=== PATIENT | male | born 1980 | race Caucasian/White ===

== ENCOUNTER 2020-01-19 20:10 | Emergency (ER) | payer MEDICAID ==
[~2020-01-19] VITALS: Ht 182.9 cm; Wt 90.9 kg
[2020-01-19] MEDS ORDERED: TETanus/Pertussis (Acell)/Diphther VAC/PF (Tdap-Adult) 0.5ml syringe IMVAC ONE (20:25)
[2020-01-19] MEDS ORDERED: LIDOcaine 1% W/epiNEPHrine 1:200,000 10ml vial IJ ONE (20:25)
--- NOTE | 2020-01-19 20:30 | NUR ---
clonidine, lamictal, prozac, latuda
[2020-01-19] MEDS ORDERED: LORA2TAB96 PO (21:02)
[2020-01-19] MEDS ORDERED: LIDOcaine 4% (40 mg/ml) topical solution 50ml TP ONE (21:10)
[2020-01-19] MEDS ORDERED: CLON-529 PO (21:13)
[2020-01-19] MEDS ORDERED: LORA-660 PO (21:15)
[2020-01-19] MEDS ORDERED: FLUO20CA39 PO (21:15)
[2020-01-19] MEDS ORDERED: LURA20TA PO (21:15)
[2020-01-19] MEDS ORDERED: ZOLP5TAB8 PO (21:15)
[2020-01-19] MEDS ORDERED: DIAZ5TAB4 PO (21:15)
[2020-01-19] MEDS ORDERED: LAMO100T65 PO (21:16)
[2020-01-19] MEDS ORDERED: CEPH-572 PO (22:06)
[2020-01-19] MEDS ORDERED: HYDR-3965 PO (22:06)
[2020-01-19 22:26] VITALS: BP 146/81
== END 2020-01-19 22:32 | disposition home or self-care (01) ==
LOC: ER 20:11
DX: S40.212A Abrasion of left shoulder, initial encounter (principal); S50.312A Abrasion of left elbow, initial encounter; M79.602 Pain in left arm; F17.200 Nicotine dependence, unspecified, uncomplicated; Z88.2 Allergy status to sulfonamides; Z79.2 Long term (current) use of antibiotics; Z79.899 Other long term (current) drug therapy; W18.39XA Other fall on same level, initial encounter; Y93.55 Activity, bike riding; Y92.89 Other specified places as the place of occurrence of the external cause; Y99.8 Other external cause status
CPT/HCPCS: 12002; 73030; 73080; 90471; 90715; 99284

== ENCOUNTER 2020-01-22 01:46 | Inpatient (IN) | payer MEDICAID ==
[~2020-01-22] VITALS: Ht 182.9 cm; Wt 90.9 kg
[~2020-01-22 01:46] MED LIST: CEPH-572 PO; CLON-529 PO; DIAZ5TAB4 PO; FLUO20CA39 PO; HYDR-3965 PO; LAMO100T65 PO; LORA-660 PO; LORA2TAB96 PO; LURA20TA PO; ZOLP5TAB8 PO
[2020-01-22 02:28] LABS: ALANINE AMINOTRANSFERASE 69 U/L (12-78); ALBUMIN 4.1 G/DL (3.4-5.0); ALBUMIN/GLOBULIN RATIO 1.5 (1.1-1.5); ALKALINE PHOSPHATASE 86 IU/L (46-116); ANION GAP 15 (8-16); ASPARTATE AMINO TRANSFERASE 191 U/L (10-37); BILIRUBIN,TOTAL 6.6 MG/DL (0.1-1.0); BLOOD UREA NITROGEN 13 MG/DL (7-18); BUN/CREATININE RATIO 7.9 (5.4-32.0); CALCIUM 8.9 MG/DL (8.5-10.1); CHLORIDE 95 MMOL/L (99-107); CREATININE 1.65 MG/DL (0.60-1.10); GLUCOSE 95 MG/DL (70-104); POTASSIUM 3.6 MMOL/L (3.5-5.1); SODIUM 134 MMOL/L (135-145); TOTAL CARBON DIOXIDE 24.4 MMOL/L (24-32); TOTAL PROTEIN 6.9 G/DL (6.4-8.2); eGFR 46 ML/MIN
[2020-01-22 02:37] LABS: ETHANOL < 0.010 GM/DL (0.0-0.010)
[2020-01-22 02:56] LABS: BASOPHILS # (AUTO) 0.1 X10'3 (0-0.2); BASOPHILS % (AUTO) 0.4 % (0-1); EOSINOPHILS % (AUTO) 0.2 % (0-6); HEMATOCRIT 37.9 % (42.0-52.0); HEMOGLOBIN 12.5 g/dl (14.0-17.9); LYMPHOCYTES # (AUTO) 1.4 X10'3 (1.1-4.8); LYMPHOCYTES % (AUTO) 9.2 % (21-51); MEAN CORPUSCULAR HEMOGLOBIN 29.9 PG (27.0-31.0); MEAN CORPUSCULAR VOLUME 90.6 FL (78-98); MEAN PLATELET VOLUME 10.2 FL (7.4-10.4); MONOCYTES # (AUTO) 1.2 X10'3 (0-0.9); MONOCYTES % (AUTO) 7.7 % (2-12); NEUTROPHILS # (AUTO) 12.7 X10'3 (1.8-7.7); NEUTROPHILS % (AUTO) 82.5 % (42-75); PLATELET COUNT 256 X10'3 (140-440); RED BLOOD COUNT 4.19 X10'6 (4.70-6.10); RED CELL DISTRIBUTION WIDTH 13.2 % (11.5-14.5); WHITE BLOOD COUNT 15.3 X10'3 (4.5-11.0)
[2020-01-22 03:00] LABS: URINE AMPHETAMINE SCREEN NEGATIVE (Neg); URINE BARBITUATE SCREEN NEGATIVE (Neg); URINE BENZODIAZEPINES SCREEN POSITIVE (Neg); URINE CANNABINOID SCREEN POSITIVE (Neg); URINE COCAINE SCREEN NEGATIVE (Neg); URINE METHADONE SCREEN NEGATIVE (Neg); URINE OPIATE SCREEN POSITIVE (Neg); URINE PHENCYCLIDINE SCREEN NEGATIVE (Neg)
[2020-01-22] MEDS ORDERED: LORA2TAB96 PO (03:10)
[2020-01-22] MEDS ORDERED: CLON-473 PO (03:10)
[2020-01-22] MEDS ORDERED: FLUO-1 PO (03:10)
[2020-01-22] MEDS ORDERED: LAMO100T PO (03:10)
[2020-01-22] MEDS ORDERED: ZOLP10TA PO (03:10)
--- NOTE | 2020-01-22 03:14 | NUR ---
pt drank a liter of ice water and another liter of ice water given to him.
[2020-01-22 03:23] LABS: CLARITY,URINE SLIGHTLY CLOUDY (Clear); COLOR,URINE AMBER (Yellow); GLUCOSE, URINE NEGATIVE (Neg); KETONES,URINE NEGATIVE (Neg); LEUKOCYTE ESTERASE ,URINE NEGATIVE (Neg); NITRITES, URINE NEGATIVE (Neg); OCCULT BLOOD,URINE LARGE (Neg); PROTEIN,URINE 30 mg/dl (Neg)
[2020-01-22 03:24] LABS: UA COLLECTION TYPE URINAL
[2020-01-22 03:35] LABS: WBC,URINE 0-4 /HPF (0-4)
[2020-01-22] MEDS ORDERED: normal saline 1000ML IV soln IVB ONE ×2 (03:35)
[2020-01-22 03:37] LABS: BACTERIA,URINE NONE SEEN /HPF (Neg); MUCUS STRANDS FEW /LPF (Neg); SQUAMOUS EPITHELIAL CELL,UR FEW /LPF (FEW)
[2020-01-22 03:38] LABS: FINE GRANULAR CAST 0-3 /LPF (NEGATIVE); HYALINE CASTS 0-3 /LPF (NEGATIVE); SPERM FEW /HPF (NEGATIVE); STARCH,URINE MODERATE /HPF (NEGATIVE)
[2020-01-22] MEDS ORDERED: LORazepam 2 mg/ml vial IV ONE (04:00)
[2020-01-22 04:06] LABS: CREATINE KINASE 8927 U/L (39-308)
[2020-01-22] MEDS ORDERED: diphenhydrAMINE 50 mg/ml inj IV ONE (04:15)
[2020-01-22] MEDS ORDERED: haloperidol decanoate***LONG-ACTING*** 100mg/ml **IM only** inj. IM ONE (04:15)
--- NOTE | 2020-01-22 04:17 | NUR ---
pt updated on his condition and why he is getting all the fluids.
--- NOTE | 2020-01-22 04:19 | NUR ---
pt given juice
[2020-01-22] MEDS ORDERED: haloperidol lactate 5mg/ml inj IM ONE (04:20)
--- NOTE | 2020-01-22 04:30 | NUR ---
MD To ordered haldol and benadryl to be given to the patient as he continued to be restless and tried to situps while in his bed. He states that he has been up for a day and does not plan to sleep as he wants to make phone calls in the morning.
[2020-01-22] MEDS ORDERED: ceFAZolin 1GM/D5W- ADD-VANTAGE 50 ML IV ONE (04:55)
[2020-01-22] MEDS ORDERED: HYDROcodone/acetaminophen 5mg/325mg tablet PO PRN (04:55)
[2020-01-22] MEDS ORDERED: magnesium 2GM in 50ml NS 50 ML IV PRN (04:55)
[2020-01-22] MEDS ORDERED: magnesium 4gm in 100ml NS 100 ML IV PRN (04:55)
[2020-01-22] MEDS ORDERED: magnesium Cl slow-release 64mg tablet PO PRN (04:55)
[2020-01-22] MEDS ORDERED: potassium CL 10mEq/100ml bag 100 ML IV PRN ×2 (04:55)
[2020-01-22] MEDS ORDERED: ondansetron/PF 4mg/2ml inj IV PRN (04:55)
[2020-01-22] MEDS ORDERED: potassium Cl 20 mEq SR tablet PO PRN ×2 (04:55)
[2020-01-22] MEDS ORDERED: acetaminophen 325mg tablet PO PRN (04:55)
[2020-01-22] MEDS ORDERED: LORazepam 1 MG tablet PO PRN (05:00)
[2020-01-22] MEDS: normal saline 1000ml 1,000 ML IV SCH ×3 (05:50→20:09)
--- NOTE | 2020-01-22 06:01 | NUR ---
Pt is resting comfortably on his back at this time with visible respirations. Seizure precautions are in place. The patient does not show signs of pain or distress. A sitter is at bedside.
[2020-01-22 06:31] LABS: CLARITY,URINE CLEAR (Clear); COLOR,URINE STRAW (Yellow); GLUCOSE, URINE NEGATIVE (Neg); KETONES,URINE NEGATIVE (Neg); LEUKOCYTE ESTERASE ,URINE NEGATIVE (Neg); NITRITES, URINE NEGATIVE (Neg); OCCULT BLOOD,URINE LARGE (Neg); PROTEIN,URINE NEGATIVE (Neg); UROBILINOGEN,URINE 0.2 E.U/dL (0.2-1.0)
[2020-01-22 06:34] LABS: UA COLLECTION TYPE URINAL
[2020-01-22 06:45] LABS: BACTERIA,URINE FEW /HPF (Neg); RBC,URINE 0-2 /HPF (0-2); SQUAMOUS EPITHELIAL CELL,UR FEW /LPF (FEW); WBC,URINE 0-4 /HPF (0-4)
--- NOTE | 2020-01-22 07:40 | NUR ---
Received patient from ED. ED RN accompanied patient to his room with his belongings. Belongings were placed inside the closet in his room. Oriented patient to the room and current no visitor policy. Patient denies any pain upon assessment and also patient denies any intent to harm himself or others.
[2020-01-22 07:51] VITALS: BP 124/87
[2020-01-22] MEDS: K and/or MAG REPLACEMENT MC SCH ×2 (08:00→20:00)
[2020-01-22] MEDS: docusate sod 100mg capsule PO SCH ×2 (08:41→20:08)
[2020-01-22] MEDS: lamoTRIgine 100mg tablet PO SCH ×2 (08:41→20:08)
[2020-01-22] MEDS: FLUoxetine 20mg capsule PO SCH (08:41)
[2020-01-22] MEDS: cloNIDine 0.1 mg tablet PO SCH ×2 (08:41→20:08)
[2020-01-22] MEDS: heparin, porcine 5000 units/ml vial SQ SCH ×2 (08:42→20:09)
--- NOTE | 2020-01-22 09:01 | NUR ---
Addendum to the skin check: Patient also noted to have bruise on his left upper hip area upon checking his skin
--- NOTE | 2020-01-22 09:08 | NUR ---
Paged Ultrasound department to get abdominal ultrasound done today
--- NOTE | 2020-01-22 09:18 | NUR ---
Instructed patient to be NPO for now until we get the abdominal ultrasound done. Patient verbalized understanding
--- NOTE | 2020-01-22 10:05 | NUR ---
Patient currently sleeping comfortably
[2020-01-22] MEDS: morphine 2 MG/ML inj. syringe IV PRN (14:06)
--- NOTE | 2020-01-22 14:19 | NUR ---
Patient found left arm wound with yellowish drainage leaking, patient reported he scratched it despite I told him earlier not to scratch his wound. Patient also complaining of pain on his left arm wound. Morphine 1mg IV given for pain. Left arm wound dressed with oil emulsion dressing covered with dry gauze then wrapped with Kerlix gauze. Reinstructed patient not to touch and scratch his wound to prevent infection. I told patient that a wound care nurse will see him probably tomorrow to assess his wounds.
[2020-01-22 18:00] VITALS: BP 118/81
[2020-01-22] MEDS: pantoprazole 40mg Tablet.DR PO SCH (18:05)
--- NOTE | 2020-01-22 18:21 | NUR ---
Problems reprioritized. Patient report given, questions answered & plan of care reviewed with Keisha CONTRERAS.
--- NOTE | 2020-01-22 18:30 | NUR ---
Patient in room [facility]. I have received report from BEN SANCHEZ and had the opportunity to ask questions and assume patient care.
[2020-01-22] MEDS: lurasidone 20mg tablet PO SCH (20:08)
[2020-01-23] VITALS: BP 111/72
[2020-01-23 05:59] LABS: BASOPHILS % (AUTO) 0.4 % (0-1); EOSINOPHILS # (AUTO) 0.1 X10'3 (0-0.9); EOSINOPHILS % (AUTO) 1.6 % (0-6); HEMATOCRIT 35.5 % (42.0-52.0); HEMOGLOBIN 11.8 g/dl (14.0-17.9); LYMPHOCYTES # (AUTO) 1.5 X10'3 (1.1-4.8); LYMPHOCYTES % (AUTO) 15.9 % (21-51); MEAN CORPUSCULAR HEMOGLOBIN 30.5 PG (27.0-31.0); MEAN CORPUSCULAR HGB CONC 33.2 g/dL (33.0-36.5); MEAN CORPUSCULAR VOLUME 91.9 FL (78-98); MEAN PLATELET VOLUME 9.2 FL (7.4-10.4); MONOCYTES # (AUTO) 0.7 X10'3 (0-0.9); MONOCYTES % (AUTO) 7.8 % (2-12); NEUTROPHILS # (AUTO) 6.8 X10'3 (1.8-7.7); NEUTROPHILS % (AUTO) 74.3 % (42-75); PLATELET COUNT 205 X10'3 (140-440); RED BLOOD COUNT 3.86 X10'6 (4.70-6.10); RED CELL DISTRIBUTION WIDTH 13.6 % (11.5-14.5); WHITE BLOOD COUNT 9.2 X10'3 (4.5-11.0)
--- NOTE | 2020-01-23 06:00 | NUR ---
Patient in room [facility]. I have received report from BEN Valdes and had the opportunity to ask questions and assume patient care.
[2020-01-23 06:14] LABS: ALANINE AMINOTRANSFERASE 154 U/L (12-78); ALBUMIN 2.7 G/DL (3.4-5.0); ALKALINE PHOSPHATASE 69 IU/L (46-116); ANION GAP 5 (8-16); ASPARTATE AMINO TRANSFERASE 563 U/L (10-37); BILIRUBIN,TOTAL 0.7 MG/DL (0.1-1.0); BLOOD UREA NITROGEN 5 MG/DL (7-18); BUN/CREATININE RATIO 4.5 (5.4-32.0); CALCIUM 8.3 MG/DL (8.5-10.1); CHLORIDE 109 MMOL/L (99-107); GLUCOSE 122 MG/DL (70-104); LIPASE 73 U/L (73-393); MAGNESIUM 2.3 MG/DL (1.5-2.4); PHOSPHORUS 2.7 MG/DL (2.3-4.5); POTASSIUM 4.2 MMOL/L (3.5-5.1); SODIUM 140 MMOL/L (135-145); TOTAL CARBON DIOXIDE 26.4 MMOL/L (24-32); TOTAL PROTEIN 5.5 G/DL (6.4-8.2); eGFR 74 ML/MIN
--- NOTE | 2020-01-23 06:51 | NUR ---
Problems reprioritized. Patient report given, questions answered & plan of care reviewed with BEN ESCUDERO.
[2020-01-23] MEDS: normal saline 1000ml 1,000 ML IV SCH ×4 (07:44→20:05)
[2020-01-23] MEDS: morphine 2 MG/ML inj. syringe IV PRN ×3 (07:49→20:45)
[2020-01-23] MEDS: pantoprazole 40mg Tablet.DR PO SCH (07:50)
[2020-01-23] MEDS: heparin, porcine 5000 units/ml vial SQ SCH ×2 (07:50→20:33)
[2020-01-23] MEDS: lamoTRIgine 100mg tablet PO SCH ×2 (07:51→20:30)
[2020-01-23] MEDS: docusate sod 100mg capsule PO SCH ×2 (07:51→20:32)
[2020-01-23] MEDS: cloNIDine 0.1 mg tablet PO SCH ×2 (07:51→20:31)
[2020-01-23] MEDS: FLUoxetine 20mg capsule PO SCH (07:51)
[2020-01-23 08:00] VITALS: BP 134/88
[2020-01-23] MEDS: K and/or MAG REPLACEMENT MC SCH ×2 (08:00→20:00)
[2020-01-23 09:32] LABS: CREATINE KINASE 17030 U/L (39-308)
--- NOTE | 2020-01-23 12:58 | NUR ---
At 1200 patient was assessed for suicidal ideation, patient stated that if he wasn't here he would go to [facility] to consume opiates if he were to kill himself. At 1255 patient recanted his statement stating that he would like to see if a newly developed medication can help him resolve his depression and explicitly stated that he is not suicidal and would like to live.
--- NOTE | 2020-01-23 14:53 | NUR ---
Dr Galeas notified of results from complete elbow study done 01/19/20.
[2020-01-23] MEDS: acetaminophen 325mg tablet PO PRN ×2 (16:10→22:47)
[2020-01-23] MEDS ORDERED: CLINDAMYCIN/D5W 900mg/50ml 50 ML IV SCH (17:05)
[2020-01-23] MEDS: clindamycin-Cleocin 900mg/D5W 50 ML IV SCH (17:59)
--- NOTE | 2020-01-23 18:00 | NUR ---
Problems reprioritized. Patient report given, questions answered & plan of care reviewed with BEN Valdes.
--- NOTE | 2020-01-23 18:35 | NUR ---
Patient in room [facility]. I have received report from Edna CONTRERAS and had the opportunity to ask questions and assume patient care.
[2020-01-23] MEDS: LORazepam 1 MG tablet PO PRN (18:39)
[2020-01-23 19:00] VITALS: BP 135/83
[2020-01-23] MEDS: lurasidone 20mg tablet PO SCH (20:32)
[2020-01-23 20:34] VITALS: BP 126/82
[2020-01-24] VITALS: BP 121/76
[2020-01-24] MEDS: LORazepam 1 MG tablet PO PRN ×4 (00:19→21:52)
[2020-01-24] MEDS: clindamycin-Cleocin 900mg/D5W 50 ML IV SCH ×3 (00:20→16:05)
[2020-01-24] MEDS: normal saline 1000ml 1,000 ML IV SCH ×4 (01:20→19:27)
[2020-01-24] MEDS: morphine 2 MG/ML inj. syringe IV PRN ×4 (02:13→19:31)
--- NOTE | 2020-01-24 05:02 | NUR ---
Called MD as pain medication not helping patient enough. 1 time order for norco 5/325mg now.
[2020-01-24] MEDS ORDERED: HYDROcodone/acetaminophen 5mg/325mg tablet PO ONE (05:05)
--- NOTE | 2020-01-24 06:00 | NUR ---
Patient in room [facility]. I have received report from BEN Stewart and had the opportunity to ask questions and assume patient care.
--- NOTE | 2020-01-24 06:50 | NUR ---
Reported off to [facility].
[2020-01-24 06:52] LABS: BASOPHILS % (AUTO) 0.3 % (0-1); EOSINOPHILS # (AUTO) 0.1 X10'3 (0-0.9); EOSINOPHILS % (AUTO) 1.9 % (0-6); HEMATOCRIT 34.7 % (42.0-52.0); HEMOGLOBIN 11.5 g/dl (14.0-17.9); LYMPHOCYTES # (AUTO) 1.7 X10'3 (1.1-4.8); LYMPHOCYTES % (AUTO) 22.4 % (21-51); MEAN CORPUSCULAR HEMOGLOBIN 30.1 PG (27.0-31.0); MEAN CORPUSCULAR HGB CONC 33.2 g/dL (33.0-36.5); MEAN CORPUSCULAR VOLUME 90.6 FL (78-98); MONOCYTES # (AUTO) 0.6 X10'3 (0-0.9); MONOCYTES % (AUTO) 8.2 % (2-12); NEUTROPHILS # (AUTO) 5.2 X10'3 (1.8-7.7); NEUTROPHILS % (AUTO) 67.2 % (42-75); PLATELET COUNT 195 X10'3 (140-440); RED BLOOD COUNT 3.83 X10'6 (4.70-6.10); WHITE BLOOD COUNT 7.7 X10'3 (4.5-11.0)
[2020-01-24 07:17] LABS: ALANINE AMINOTRANSFERASE 223 U/L (12-78); ALBUMIN 2.6 G/DL (3.4-5.0); ALBUMIN/GLOBULIN RATIO 0.8 (1.1-1.5); ALKALINE PHOSPHATASE 70 IU/L (46-116); ANION GAP 7 (8-16); ASPARTATE AMINO TRANSFERASE 694 U/L (10-37); BILIRUBIN,TOTAL 0.8 MG/DL (0.1-1.0); BLOOD UREA NITROGEN 3 MG/DL (7-18); BUN/CREATININE RATIO 3.1 (5.4-32.0); CALCIUM 8.4 MG/DL (8.5-10.1); CHLORIDE 104 MMOL/L (99-107); CREATININE 0.97 MG/DL (0.60-1.10); GLUCOSE 100 MG/DL (70-104); LIPASE 77 U/L (73-393); MAGNESIUM 1.9 MG/DL (1.5-2.4); PHOSPHORUS 3.4 MG/DL (2.3-4.5); POTASSIUM 3.8 MMOL/L (3.5-5.1); SODIUM 135 MMOL/L (135-145); TOTAL CARBON DIOXIDE 23.6 MMOL/L (24-32); TOTAL PROTEIN 5.7 G/DL (6.4-8.2); eGFR 86 ML/MIN
[2020-01-24] MEDS: heparin, porcine 5000 units/ml vial SQ SCH ×2 (07:18→19:30)
[2020-01-24] MEDS: FLUoxetine 20mg capsule PO SCH (07:21)
[2020-01-24] MEDS: lamoTRIgine 100mg tablet PO SCH ×2 (07:21→19:28)
[2020-01-24] MEDS: pantoprazole 40mg Tablet.DR PO SCH (07:22)
[2020-01-24] MEDS: docusate sod 100mg capsule PO SCH ×2 (07:22→19:28)
[2020-01-24] MEDS: cloNIDine 0.1 mg tablet PO SCH ×2 (07:22→19:28)
[2020-01-24 07:30] VITALS: BP 133/72
[2020-01-24 07:47] LABS: CREATINE KINASE 17245 U/L (39-308)
[2020-01-24] MEDS: K and/or MAG REPLACEMENT MC SCH ×2 (08:00→20:00)
[2020-01-24 11:00] VITALS: BP 124/80
[2020-01-24] MEDS ORDERED: HYDROcodone/acetaminophen 5mg/325mg tablet PO PRN (13:00)
--- NOTE | 2020-01-24 13:04 | NUR ---
Spoke with MD Galeas, instructed to keep sitter on patient until evaluated by the county.
[2020-01-24] MEDS: HYDROcodone/acetaminophen 10/325mg tab PO PRN ×2 (16:04→21:54)
[2020-01-24] MEDS ORDERED: clindamycin-Cleocin 900mg/D5W 50 ML IV SCH (17:54)
--- NOTE | 2020-01-24 18:00 | NUR ---
Problems reprioritized. Patient report given, questions answered & plan of care reviewed with BEN Stewart.
--- NOTE | 2020-01-24 18:30 | NUR ---
Patient in room [facility] 353. I have received report from Edna CONTRERAS and had the opportunity to ask questions and assume patient care.
[2020-01-24 19:00] VITALS: BP 142/86
[2020-01-24] MEDS: lactobacillus rhamnosus 10,000 MMU CELLS/CAPSULE PO SCH (19:28)
[2020-01-24] MEDS: lurasidone 20mg tablet PO SCH (21:52)
[2020-01-25] VITALS: BP 137/81
[2020-01-25] MEDS: morphine 2 MG/ML inj. syringe IV PRN ×2 (00:44→13:24)
[2020-01-25] MEDS: clindamycin-Cleocin 900mg/D5W 50 ML IV SCH ×4 (00:44→23:40)
[2020-01-25] MEDS: normal saline 1000ml 1,000 ML IV SCH ×5 (02:36→20:05)
[2020-01-25] MEDS: HYDROcodone/acetaminophen 10/325mg tab PO PRN ×5 (02:36→23:39)
[2020-01-25] MEDS: LORazepam 1 MG tablet PO PRN ×3 (04:59→19:31)
[2020-01-25 05:32] LABS: BASOPHILS % (AUTO) 0.4 % (0-1); EOSINOPHILS # (AUTO) 0.1 X10'3 (0-0.9); EOSINOPHILS % (AUTO) 2.1 % (0-6); HEMATOCRIT 34.4 % (42.0-52.0); HEMOGLOBIN 11.5 g/dl (14.0-17.9); LYMPHOCYTES # (AUTO) 2.3 X10'3 (1.1-4.8); LYMPHOCYTES % (AUTO) 35.5 % (21-51); MEAN CORPUSCULAR HEMOGLOBIN 30.7 PG (27.0-31.0); MEAN CORPUSCULAR HGB CONC 33.3 g/dL (33.0-36.5); MEAN CORPUSCULAR VOLUME 92.1 FL (78-98); MEAN PLATELET VOLUME 9.8 FL (7.4-10.4); MONOCYTES # (AUTO) 0.5 X10'3 (0-0.9); MONOCYTES % (AUTO) 8.2 % (2-12); NEUTROPHILS # (AUTO) 3.6 X10'3 (1.8-7.7); NEUTROPHILS % (AUTO) 53.8 % (42-75); PLATELET COUNT 196 X10'3 (140-440); RED BLOOD COUNT 3.73 X10'6 (4.70-6.10); WHITE BLOOD COUNT 6.6 X10'3 (4.5-11.0)
[2020-01-25 06:25] LABS: ALANINE AMINOTRANSFERASE 223 U/L (12-78); ALBUMIN 2.4 G/DL (3.4-5.0); ALBUMIN/GLOBULIN RATIO 0.8 (1.1-1.5); ALKALINE PHOSPHATASE 65 IU/L (46-116); ANION GAP 9 (8-16); ASPARTATE AMINO TRANSFERASE 573 U/L (10-37); BILIRUBIN,TOTAL 0.4 MG/DL (0.1-1.0); BLOOD UREA NITROGEN 3 MG/DL (7-18); CALCIUM 8.6 MG/DL (8.5-10.1); CHLORIDE 108 MMOL/L (99-107); CREATININE 0.99 MG/DL (0.60-1.10); GLUCOSE 98 MG/DL (70-104); MAGNESIUM 1.9 MG/DL (1.5-2.4); POTASSIUM 4.1 MMOL/L (3.5-5.1); SODIUM 141 MMOL/L (135-145); TOTAL CARBON DIOXIDE 23.9 MMOL/L (24-32); TOTAL PROTEIN 5.5 G/DL (6.4-8.2); eGFR 84 ML/MIN
--- NOTE | 2020-01-25 06:40 | NUR ---
Patient in room [facility] 353. I have received report from aPt CONTRERAS and had the opportunity to ask questions and assume patient care.
[2020-01-25 06:58] LABS: CREATINE KINASE 11044 U/L (39-308)
[2020-01-25 07:00] VITALS: BP 139/83
[2020-01-25] MEDS: lamoTRIgine 100mg tablet PO SCH ×2 (07:54→19:31)
[2020-01-25] MEDS: cloNIDine 0.1 mg tablet PO SCH ×2 (07:54→19:31)
[2020-01-25] MEDS: lactobacillus rhamnosus 10,000 MMU CELLS/CAPSULE PO SCH ×2 (07:54→19:31)
[2020-01-25] MEDS: docusate sod 100mg capsule PO SCH ×2 (07:54→19:30)
[2020-01-25] MEDS: FLUoxetine 20mg capsule PO SCH (07:54)
[2020-01-25] MEDS: pantoprazole 40mg Tablet.DR PO SCH (07:54)
[2020-01-25] MEDS: heparin, porcine 5000 units/ml vial SQ SCH ×2 (08:00→19:33)
[2020-01-25] MEDS: K and/or MAG REPLACEMENT MC SCH ×2 (08:00→20:00)
[2020-01-25 11:00] VITALS: BP 137/95
--- NOTE | 2020-01-25 17:24 | NUR ---
patient appeared very anxious until schedule was established. meds written on patients board appears to help patient very much with anxiety. Constant reassurance required. this RN spoke with patients mother to establish timeline of events prior to admission per patients request. patient able to rest in pm. Medicated with norco and ativan per EMAR and morphine for wound dressing change. sitter in room. patient stated he had no suicidal thoughts during this shift
[2020-01-25 18:00] VITALS: BP 146/100
--- NOTE | 2020-01-25 18:05 | NUR ---
Received report from primary care nurse Christy RN. Patient is awake and alert on room air. In no apparent distress. Call light and items of frequent use within reach. Tab alarms on and audible. Addendum: 01/25/20 at 1808 by Angeles Whitmore RN wrong patient
--- NOTE | 2020-01-25 18:21 | NUR ---
Problems reprioritized. Patient report given, questions answered & plan of care reviewed with Angeles CONTRERAS. Patient medicated for pain 04/23 see EMAR..
--- NOTE | 2020-01-25 18:36 | NUR ---
Reported off to Kevin CONTRERAS. Patient is awake and alert sitter is at the bedside.
[2020-01-25 19:00] VITALS: BP_SYST 129; BP_SYST 146; BP_DIAS 100; BP_DIAS 90
[2020-01-25] MEDS: lurasidone 20mg tablet PO SCH (21:06)
[2020-01-26] MEDS: normal saline 1000ml 1,000 ML IV SCH ×6 (00:37→21:55)
[2020-01-26 00:40] VITALS: BP 130/86
[2020-01-26] MEDS: LORazepam 1 MG tablet PO PRN ×4 (01:52→20:45)
[2020-01-26] MEDS: HYDROcodone/acetaminophen 10/325mg tab PO PRN ×2 (04:25→08:47)
[2020-01-26 06:04] LABS: BASOPHILS % (AUTO) 0.5 % (0-1); EOSINOPHILS # (AUTO) 0.2 X10'3 (0-0.9); EOSINOPHILS % (AUTO) 2.1 % (0-6); HEMOGLOBIN 11.9 g/dl (14.0-17.9); LYMPHOCYTES # (AUTO) 2.5 X10'3 (1.1-4.8); LYMPHOCYTES % (AUTO) 32.9 % (21-51); MEAN CORPUSCULAR HEMOGLOBIN 29.8 PG (27.0-31.0); MEAN CORPUSCULAR VOLUME 90.5 FL (78-98); MONOCYTES # (AUTO) 0.7 X10'3 (0-0.9); MONOCYTES % (AUTO) 8.7 % (2-12); NEUTROPHILS # (AUTO) 4.2 X10'3 (1.8-7.7); NEUTROPHILS % (AUTO) 55.8 % (42-75); PLATELET COUNT 272 X10'3 (140-440); RED BLOOD COUNT 3.97 X10'6 (4.70-6.10); RED CELL DISTRIBUTION WIDTH 13.2 % (11.5-14.5); WHITE BLOOD COUNT 7.5 X10'3 (4.5-11.0)
[2020-01-26 06:40] LABS: ALANINE AMINOTRANSFERASE 231 U/L (12-78); ALBUMIN 2.8 G/DL (3.4-5.0); ALBUMIN/GLOBULIN RATIO 0.9 (1.1-1.5); ALKALINE PHOSPHATASE 67 IU/L (46-116); ANION GAP 7 (8-16); ASPARTATE AMINO TRANSFERASE 424 U/L (10-37); BILIRUBIN,TOTAL 0.4 MG/DL (0.1-1.0); BLOOD UREA NITROGEN 4 MG/DL (7-18); BUN/CREATININE RATIO 3.9 (5.4-32.0); CALCIUM 9.1 MG/DL (8.5-10.1); CHLORIDE 106 MMOL/L (99-107); CREATININE 1.02 MG/DL (0.60-1.10); GLUCOSE 98 MG/DL (70-104); MAGNESIUM 1.8 MG/DL (1.5-2.4); SODIUM 141 MMOL/L (135-145); TOTAL CARBON DIOXIDE 27.8 MMOL/L (24-32); eGFR 81 ML/MIN
[2020-01-26 06:42] LABS: CREATINE KINASE 5074 U/L (39-308)
--- NOTE | 2020-01-26 06:42 | NUR ---
Problems reprioritized. Patient report given, questions answered & plan of care reviewed with BEN Mcbride.
--- NOTE | 2020-01-26 07:08 | NUR ---
PAGER ID: [phone] MESSAGE: Rae meléndez [phone] re Verna Miguel- reporting 06/23 pain, Zenia not due for 2 hrs, can I please have something for breakthrough? Thanks!
[2020-01-26 08:00] VITALS: BP 143/87
[2020-01-26] MEDS: K and/or MAG REPLACEMENT MC SCH ×2 (08:00→19:54)
[2020-01-26] MEDS: docusate sod 100mg capsule PO SCH ×2 (08:48→19:33)
[2020-01-26] MEDS: FLUoxetine 20mg capsule PO SCH (08:48)
[2020-01-26] MEDS: lactobacillus rhamnosus 10,000 MMU CELLS/CAPSULE PO SCH ×2 (08:48→19:33)
[2020-01-26] MEDS: pantoprazole 40mg Tablet.DR PO SCH (08:48)
[2020-01-26] MEDS: cloNIDine 0.1 mg tablet PO SCH ×2 (08:48→19:33)
[2020-01-26] MEDS: heparin, porcine 5000 units/ml vial SQ SCH ×2 (08:49→19:35)
[2020-01-26] MEDS: lamoTRIgine 100mg tablet PO SCH ×2 (08:50→19:33)
[2020-01-26] MEDS: clindamycin-Cleocin 900mg/D5W 50 ML IV SCH ×3 (08:51→23:57)
[2020-01-26 11:00] VITALS: BP 130/80
--- NOTE | 2020-01-26 11:42 | NUR ---
Initial: Pt BIB [facility] on 5149. Pt presented with c/o feeling dehydrated and admitted for rhabdomyolysis, transaminitis and YOVANI secondary to rhabdomyolysis, and leukocytosis likely secondary to dehydration. CK improving and transaminitis stabilized per MD notes. Pt s/p CT which showed acute cellulitis of LUE per MD notes. Per [facility] notes pt with two large abrasions to left arm. Pt with psych hx, currently with sitter at bedside. Pt on a regular diet documented overall with 100% PO intake except for 0% PO intake x 2 meals on 01/22 and 75% PO intake at breakfast this morning. Pt likely meeting nutrient needs given mostly with 100% PO intake. D/w dietary to send double protein TID for satiety. [facility] 01/25. Will continue to follow and monitor need for further nutrition intervention. Recommendations: 1) Continue regular diet 2) Double eggs q breakfast; double protein BIDLD 3) Routine bowel care 4) Wt per rx Addendum: 01/26/20 at [address] Amended: Links added.
[2020-01-26] MEDS: oxyCODONE IR 5mg (immed. release) tablet PO PRN ×2 (13:16→19:33)
--- NOTE | 2020-01-26 16:07 | NUR ---
PAGER ID: [phone] MESSAGE: Rae [phone] re Lamont Alejo in 359[facility]- he is requesting to speak to a psychiatrist about adjusting his lamictal to Q 4 or 6 instead of Q12 same dose only spread out. Should he have a psych eval?
--- NOTE | 2020-01-26 18:08 | NUR ---
Received report from primary care nurse aRe CONTRERAS and student RN Bere. Assumed patient care. Patient is awake and alert on room air in no apparent distress. Eating his dinner. Call light and items of frequent use within reach. Will continue to monitor for changes.
[2020-01-26 19:18] VITALS: BP 141/87
--- NOTE | 2020-01-26 20:42 | NUR ---
Paged MD Galeas for patient c/o pain not being managed and muscle spasms in back
[2020-01-26] MEDS: lurasidone 20mg tablet PO SCH (20:45)
[2020-01-26] MEDS: baclofen 10mg tablet PO PRN (21:09)
[2020-01-27] VITALS: BP 134/78
[2020-01-27] MEDS: LORazepam 1 MG tablet PO PRN ×4 (02:57→21:16)
[2020-01-27] MEDS: oxyCODONE IR 5mg (immed. release) tablet PO PRN ×4 (02:58→21:18)
[2020-01-27] MEDS: normal saline 1000ml 1,000 ML IV SCH ×6 (03:42→20:02)
[2020-01-27 06:07] LABS: BASOPHILS % (AUTO) 0.5 % (0-1); EOSINOPHILS # (AUTO) 0.1 X10'3 (0-0.9); EOSINOPHILS % (AUTO) 1.3 % (0-6); HEMATOCRIT 38.1 % (42.0-52.0); HEMOGLOBIN 12.7 g/dl (14.0-17.9); LYMPHOCYTES # (AUTO) 2.4 X10'3 (1.1-4.8); LYMPHOCYTES % (AUTO) 27.1 % (21-51); MEAN CORPUSCULAR HEMOGLOBIN 30.1 PG (27.0-31.0); MEAN CORPUSCULAR HGB CONC 33.3 g/dL (33.0-36.5); MEAN CORPUSCULAR VOLUME 90.4 FL (78-98); MEAN PLATELET VOLUME 8.5 FL (7.4-10.4); MONOCYTES # (AUTO) 0.6 X10'3 (0-0.9); MONOCYTES % (AUTO) 7.4 % (2-12); NEUTROPHILS # (AUTO) 5.6 X10'3 (1.8-7.7); NEUTROPHILS % (AUTO) 63.7 % (42-75); PLATELET COUNT 292 X10'3 (140-440); RED BLOOD COUNT 4.22 X10'6 (4.70-6.10); RED CELL DISTRIBUTION WIDTH 13.4 % (11.5-14.5); WHITE BLOOD COUNT 8.7 X10'3 (4.5-11.0)
--- NOTE | 2020-01-27 06:26 | NUR ---
Reported off to Rae CONTRERAS and student RN Bere. Patient is resting with relaxed and unlabored respirations. Call light and items of frequent use within reach.
[2020-01-27 06:34] LABS: ALBUMIN 2.8 G/DL (3.4-5.0); ANION GAP 7 (8-16); BILIRUBIN,TOTAL 0.4 MG/DL (0.1-1.0); BLOOD UREA NITROGEN 7 MG/DL (7-18); BUN/CREATININE RATIO 6.9 (5.4-32.0); CHLORIDE 106 MMOL/L (99-107); CREATININE 1.02 MG/DL (0.60-1.10); GLUCOSE 96 MG/DL (70-104); MAGNESIUM 1.8 MG/DL (1.5-2.4); POTASSIUM 4.1 MMOL/L (3.5-5.1); SODIUM 141 MMOL/L (135-145); TOTAL CARBON DIOXIDE 28.3 MMOL/L (24-32); eGFR 81 ML/MIN
[2020-01-27 06:35] LABS: ALANINE AMINOTRANSFERASE 204 U/L (12-78); ALBUMIN/GLOBULIN RATIO 0.9 (1.1-1.5); ALKALINE PHOSPHATASE 68 IU/L (46-116); ASPARTATE AMINO TRANSFERASE 272 U/L (10-37)
[2020-01-27 06:36] LABS: CREATINE KINASE 2181 U/L (39-308)
[2020-01-27 07:14] VITALS: BP 131/85
[2020-01-27] MEDS: K and/or MAG REPLACEMENT MC SCH ×2 (08:00→19:25)
[2020-01-27] MEDS: baclofen 10mg tablet PO PRN ×2 (08:13→17:49)
[2020-01-27] MEDS: clindamycin-Cleocin 900mg/D5W 50 ML IV SCH ×2 (09:22→17:51)
[2020-01-27] MEDS: lamoTRIgine 100mg tablet PO SCH ×2 (09:23→20:03)
[2020-01-27] MEDS: pantoprazole 40mg Tablet.DR PO SCH (09:23)
[2020-01-27] MEDS: lactobacillus rhamnosus 10,000 MMU CELLS/CAPSULE PO SCH ×2 (09:24→20:03)
[2020-01-27] MEDS: heparin, porcine 5000 units/ml vial SQ SCH ×2 (09:28→20:03)
[2020-01-27] MEDS: cloNIDine 0.1 mg tablet PO SCH ×2 (09:29→20:03)
[2020-01-27] MEDS: docusate sod 100mg capsule PO SCH ×2 (09:29→20:03)
[2020-01-27] MEDS: FLUoxetine 20mg capsule PO SCH (09:30)
[2020-01-27 11:00] VITALS: BP 143/90
--- NOTE | 2020-01-27 16:51 | NUR ---
PAGER ID: [phone] MESSAGE: Rae [phone] re LamontSapna in [address] [place] [address] is not going to put him on a hold, so he is cleared to go home. Can you rx a small supply of baclofen 5 mg along with the PO clinda? also Can he take ibuprofen?
[2020-01-27 18:00] VITALS: BP 134/89
--- NOTE | 2020-01-27 18:30 | NUR ---
Patient in room [facility]. I have received report from BEN Mcbride and had the opportunity to ask questions and assume patient care.
[2020-01-27] MEDS: lurasidone 20mg tablet PO SCH (21:16)
[2020-01-28] VITALS: BP 123/76
[2020-01-28] MEDS: clindamycin-Cleocin 900mg/D5W 50 ML IV SCH ×2 (00:06→07:06)
[2020-01-28] MEDS: normal saline 1000ml 1,000 ML IV SCH ×3 (00:06→10:48)
[2020-01-28] MEDS: baclofen 10mg tablet PO PRN ×2 (01:59→10:01)
[2020-01-28] MEDS: LORazepam 1 MG tablet PO PRN ×2 (03:20→09:23)
[2020-01-28] MEDS: oxyCODONE IR 5mg (immed. release) tablet PO PRN ×2 (03:20→09:21)
--- NOTE | 2020-01-28 06:27 | NUR ---
Problems reprioritized. Patient report given, questions answered & plan of care reviewed with BEN Nevarez.
[2020-01-28 06:56] LABS: CREATINE KINASE 924 U/L (39-308); MAGNESIUM 1.9 MG/DL (1.5-2.4)
[2020-01-28] MEDS: FLUoxetine 20mg capsule PO SCH (07:06)
[2020-01-28] MEDS: docusate sod 100mg capsule PO SCH (07:06)
[2020-01-28] MEDS: cloNIDine 0.1 mg tablet PO SCH (07:06)
[2020-01-28] MEDS: pantoprazole 40mg Tablet.DR PO SCH (07:06)
[2020-01-28] MEDS: lactobacillus rhamnosus 10,000 MMU CELLS/CAPSULE PO SCH (07:06)
[2020-01-28] MEDS: lamoTRIgine 100mg tablet PO SCH (07:06)
[2020-01-28] MEDS: heparin, porcine 5000 units/ml vial SQ SCH (07:07)
[2020-01-28 07:15] VITALS: BP 151/94
[2020-01-28] MEDS: K and/or MAG REPLACEMENT MC SCH (08:00)
[2020-01-28] MEDS ORDERED: CLIN-97 PO (12:14)
[2020-01-28] MEDS ORDERED: BACL-11 PO (12:14)
[2020-01-28 12:32] VITALS: BP 126/82
--- NOTE | 2020-01-28 13:34 | NUR ---
Discussed with patient discharge instructions, new prescriptions and home med changes. Patient A&O and verbalizes understanding of discharge instructions. Patient packing belongings and ready for DC. Patient awaiting for transport home.
--- NOTE | 2020-01-28 14:10 | NUR ---
Patient dc'd with all personal belongings escorted out with KARLA Delarosa. Patient was alert and oriented with no complaints, no s/s of acute distress. Patient was given back his home meds that were stored in pharmacy as well.
== END 2020-01-28 14:03 | disposition home or self-care (01) | DRG 351 ==
LOC: ER 01:47 → ED HOLD 04:51 → SUR 3N 07:35
PROVIDERS: ADMIT Internal Medicine; ATTEND Internal Medicine
DX: M62.82 Rhabdomyolysis (principal); N17.0 Acute kidney failure with tubular necrosis; R45.851 Suicidal ideations; F20.9 Schizophrenia, unspecified; E86.0 Dehydration; F32.9 Major depressive disorder, single episode, unspecified; L03.114 Cellulitis of left upper limb; M62.830 Muscle spasm of back; R74.0 Nonspecific elevation of levels of transaminase and lactic acid dehydrogenase [LDH]; Z88.2 Allergy status to sulfonamides
CPT/HCPCS: 36415; 73200; 76700; 80053; 80305; 80320; 81001; 82550; 82948; 83690; 83735; 84100; 84145; 84443; 85025; 87081; 96374; 97530; 97535; 99285; G0378; J0690; J1200; J1630; J1644; J2060; J2270; J3490; J7030

== ENCOUNTER → 2020-04-29 | Emergency (ER) | payer MEDICAID ==
[~2020-04-29] VITALS: Ht 182.9 cm; Wt 86.4 kg
[~2020-04-29] MED LIST changes: +BACL-11 PO; -CEPH-572 PO; +CLIN-97 PO; +CLON-473 PO; -CLON-529 PO; -DIAZ5TAB4 PO; -HYDR-3965 PO; +LAMO100T PO; -LAMO100T65 PO; -LORA-660 PO; +ZOLP10TA PO; -ZOLP5TAB8 PO
[2020-04-29 11:52] VITALS: BP 136/79
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
== END | disposition left against medical advice (07) ==
LOC: ER 11:41
DX: N50.812 Left testicular pain (principal); Z53.21 Procedure and treatment not carried out due to patient leaving prior to being seen by health care provider
CPT/HCPCS: 99281